=== PATIENT | female | born 1985 | race African-American/Black ===

== ENCOUNTER 2017-02-14 12:52 | Emergency (ER) | payer OTHER ==
[~2017-02-14] VITALS: Ht 167.6 cm; Wt 65.0 kg
[~2017-02-14 12:52] MED LIST: AMOXICILLIN500 MG PO; CIPROFLOXACN500 MG PO; FIORICET PO; LORTAB 1010 MG PO; MACROBID100 MG PO; NORCO1 TA1 PO; OB COMPLET2 PO; ONDANSETRON4 MG PO; PROGESTERONE50 MG/ML IM; TUSSIONEX1 ML PO; ULTRAM50 M1 PO; ZITHROMAX250 MG PO
[2017-02-14] MEDS ORDERED: PRE-NATAL PO (13:37)
[2017-02-14] MEDS ORDERED: AMOXICILLIN500 MG PO ×2 (14:42→16:26)
[2017-02-14 14:45] VITALS: BP 128/65
== END 2017-02-14 14:45 | disposition home or self-care (01) | DRG 781 ==
LOC: ED 12:52
DX: O26.891 Other specified pregnancy related conditions, first trimester (principal); R50.9 Fever, unspecified; J40 Bronchitis, not specified as acute or chronic

== ENCOUNTER 2017-03-06 17:00 | Emergency (ER) | payer OTHER ==
[~2017-03-06] VITALS: Ht 167.6 cm; Wt 57.0 kg
[~2017-03-06 17:00] MED LIST changes: +PRE-NATAL PO
[2017-03-06 17:54] LABS: HEMATOCRIT 26.7 % (37.0-47.0); HEMOGLOBIN 9.7 g/dl (12.0-16.0); IMMATURE GRANULOCYTES 0.5 % (0.0-1.0); MEAN CELL VOLUME 81.4 fL CALC (80.0-100.0); MEAN CORPUSCULAR HGB 29.6 pG CALC (26.0-32.0); MEAN CORPUSCULAR HGB CONC 36.3 g/L CALC (32.0-36.0); NEUT# 5.38 thou/uL (2.00-7.15); RED BLOOD COUNT 3.28 mill/uL (4.20-5.60); RED CELL DISTRI WIDTH 13.5 % (11.5-15.5)
[2017-03-06 18:15] LABS: ALBUMIN 3.7 g/dL (3.2-5.0); ALKALINE PHOSPHATASE 46 u/l (38-126); ANION GAP 14 (6-22 (CALC)); BILIRUBIN, TOTAL 0.3 mg/dL (0.0-1.4); BUN 5 mg/dL (7-17); BUN/CREATININE RATIO 11 (12-20 (CALC)); CALCIUM 8.9 mg/dL (8.4-10.2); CARBON DIOXIDE 20 mmol/l (22-30); CHLORIDE 106 mmol/l (95-108); CREATININE 0.5 mg/dL (0.5-1.0); GFR > 60 ML/MIN (>=60 (CALC)); GFR FOR AFR.AMER. > 60 ML/MIN (>=60 (CALC)); GLUCOSE 85 mg/dL (65-105); POTASSIUM 3.4 mmol/l (3.5-5.1); SGOT/AST 22 u/l (14-36); SGPT/ALT 22 u/l (9-52); SODIUM 137 mmol/l (137-146); TOTAL PROTEIN 6.7 g/dL (6.3-8.2)
[2017-03-06 19:26] VITALS: BP 96/55
[2017-03-06 19:28] LABS: URINE BILIRUBIN - DIPSTICK NEGATIVE (NEGATIVE); URINE BLOOD DIPSTICK NEGATIVE (NEGATIVE); URINE CLARITY CLEAR; URINE COLOR YELLOW; URINE GLUCOSE - DIPSTICK NEGATIVE (NEGATIVE); URINE KETONE TRACE mg/dL (NEGATIVE); URINE LEUK ESTERASE TRACE (NEGATIVE); URINE NITRITE - DIPSTICK NEGATIVE (Negative); URINE PH 7.5 (4.5-8.0); URINE PROTEIN - DIPSTICK NEGATIVE (NEG-TRACE); URINE SPECIFIC GRAVITY 1.015
== END 2017-03-06 19:30 | disposition home or self-care (01) | DRG 914 ==
LOC: ED 17:00
PROVIDERS: Emergency Medicine
DX: S39.81XA Other specified injuries of abdomen, initial encounter (principal); O26.852 Spotting complicating pregnancy, second trimester; Z3A.16 16 weeks gestation of pregnancy; W50.0XXA Accidental hit or strike by another person, initial encounter

== ENCOUNTER 2017-11-13 22:16 | Emergency (ER) | payer OTHER ==
[~2017-11-13] VITALS: Ht 167.6 cm; Wt 59.4 kg
[2017-11-14] MEDS ORDERED: NAPROSYN500 MG PO (00:40)
[2017-11-14 00:43] VITALS: BP 116/76
== END 2017-11-14 01:02 | disposition home or self-care (01) | DRG 552 ==
LOC: ED 22:16
DX: S13.9XXA Sprain of joints and ligaments of unspecified parts of neck, initial encounter (principal); M62.830 Muscle spasm of back; S33.5XXA Sprain of ligaments of lumbar spine, initial encounter; V49.59XA Passenger injured in collision with other motor vehicles in traffic accident, initial encounter; Y92.414 Local residential or business street as the place of occurrence of the external cause

== ENCOUNTER 2018-07-19 19:33 | Emergency (ER) | payer SELFPAY ==
[~2018-07-19] VITALS: Ht 167.6 cm; Wt 55.0 kg
[~2018-07-19 19:33] MED LIST changes: +NAPROSYN500 MG PO
[2018-07-19] MEDS ORDERED: PENICILLN VK500 MG PO (20:33)
[2018-07-19] MEDS ORDERED: IBUPROFEN600 MG PO (20:33)
[2018-07-19 20:42] VITALS: BP 110/66
== END 2018-07-19 20:42 | disposition home or self-care (01) | DRG 159 ==
LOC: ED 19:33
DX: K04.7 Periapical abscess without sinus (principal)

== ENCOUNTER 2018-10-27 15:05 | Emergency (ER) | payer SELFPAY ==
[~2018-10-27] VITALS: Ht 167.6 cm; Wt 61.0 kg
[~2018-10-27 15:05] MED LIST changes: +IBUPROFEN600 MG PO; +PENICILLN VK500 MG PO
[2018-10-27] MEDS ORDERED: TORADOL PO (15:29)
[2018-10-27] MEDS ORDERED: AMOXICILLIN500 MG PO (15:29)
[2018-10-27 15:45] VITALS: BP 121/73
== END 2018-10-27 15:45 | disposition home or self-care (01) | DRG 159 ==
LOC: ED 15:05
DX: K08.89 Other specified disorders of teeth and supporting structures (principal); K02.9 Dental caries, unspecified

== ENCOUNTER 2019-07-28 18:55 | Emergency (ER) | payer SELFPAY ==
[~2019-07-28] VITALS: Ht 167.6 cm; Wt 58.2 kg
[~2019-07-28 18:55] MED LIST changes: +TORADOL PO
[2019-07-28 19:50] LABS: IMMATURE GRANULOCYTES 0.3 % (0.0-5.0); MEAN CELL VOLUME 81.2 fL CALC (80.0-100.0); MEAN CORPUSCULAR HGB 28.3 pG CALC (26.0-32.0); MEAN CORPUSCULAR HGB CONC 34.8 g/L CALC (32.0-36.0); NEUT# 3.74 thou/uL (2.00-7.15); RED BLOOD COUNT 4.42 mill/uL (4.20-5.60); RED CELL DISTRI WIDTH 15.5 % (11.5-15.5)
[2019-07-28 19:51] LABS: HEMATOCRIT 35.9 % (37.0-47.0); HEMOGLOBIN 12.5 g/dl (12.0-16.0)
[2019-07-28 19:51] LABS: URINE BILIRUBIN - DIPSTICK NEGATIVE (NEGATIVE); URINE BLOOD DIPSTICK NEGATIVE (NEGATIVE); URINE COLOR YELLOW; URINE GLUCOSE - DIPSTICK NEGATIVE (NEGATIVE); URINE KETONE NEGATIVE (NEGATIVE); URINE LEUK ESTERASE TRACE (NEGATIVE); URINE NITRITE - DIPSTICK NEGATIVE (Negative); URINE PROTEIN - DIPSTICK NEGATIVE (NEG-TRACE); URINE SPECIFIC GRAVITY <=1.005; URINE UROBILINOGEN - DIPSTICK 0.2 E.U./dL (0.2)
[2019-07-28 20:00] VITALS: BP 130/67
[2019-07-28 20:14] LABS: ANION GAP 16 (6-22 (CALC)); BUN 6 mg/dL (7-17); BUN/CREATININE RATIO 11 (12-20 (CALC)); CARBON DIOXIDE 23 mmol/l (22-30); CHLORIDE 104 mmol/l (95-108); CREATININE 0.5 mg/dL (0.5-1.0); GFR > 60 ML/MIN (>=60 (CALC)); GFR FOR AFR.AMER. > 60 ML/MIN (>=60 (CALC)); POTASSIUM 3.9 mmol/l (3.5-5.1); SGOT/AST 22 u/l (14-36); SODIUM 139 mmol/l (137-146)
[2019-07-28 20:15] LABS: ALKALINE PHOSPHATASE 83 u/l (38-126); BILIRUBIN, TOTAL 0.5 mg/dL (0.0-1.4); TOTAL PROTEIN 8.7 g/dL (6.3-8.2)
[2019-07-28 20:26] LABS: MYOGLOBIN 27 ng/mL (0 - 62)
== END 2019-07-28 22:16 | disposition home or self-care (01) | DRG 313 ==
LOC: ED 18:55
PROVIDERS: Emergency Medicine
DX: R07.89 Other chest pain (principal)

== ENCOUNTER 2019-11-30 06:36 | Emergency (ER) | payer SELFPAY ==
[2019-11-30] MEDS ORDERED: TYLENOL # 31 TAB PO (07:25)
[2019-11-30] MEDS ORDERED: KEFLEX500 MG PO (07:25)
[2019-11-30 07:37] VITALS: BP 111/67
== END 2019-11-30 07:42 | disposition home or self-care (01) | DRG 159 ==
LOC: ED 06:36
DX: K04.7 Periapical abscess without sinus (principal)

== ENCOUNTER 2020-01-22 | Emergency (ER) | payer OTHER ==
[~2020-01-22] MED LIST changes: +KEFLEX500 MG PO; +TYLENOL # 31 TAB PO
[2020-01-22 17:29] LABS: IMMATURE GRANULOCYTES 0.5 % (0.0-5.0); MEAN CELL VOLUME 79.9 fL CALC (80.0-100.0); MEAN CORPUSCULAR HGB 29.4 pG CALC (26.0-32.0); MEAN CORPUSCULAR HGB CONC 36.7 g/dL CAL (32.0-36.0); NEUT# 5.65 thou/uL (2.00-7.15); RED BLOOD COUNT 3.54 mill/uL (4.20-5.60); RED CELL DISTRI WIDTH 13.9 % (11.5-15.5)
[2020-01-22 17:34] LABS: URINE BILIRUBIN - DIPSTICK NEGATIVE (NEGATIVE); URINE BLOOD DIPSTICK NEGATIVE (NEGATIVE); URINE CLARITY CLEAR; URINE COLOR YELLOW; URINE GLUCOSE - DIPSTICK NEGATIVE (NEGATIVE); URINE KETONE NEGATIVE (NEGATIVE); URINE LEUK ESTERASE NEGATIVE (Negative); URINE NITRITE - DIPSTICK NEGATIVE (Negative); URINE PROTEIN - DIPSTICK NEGATIVE (NEG-TRACE); URINE UROBILINOGEN - DIPSTICK 0.2 E.U./dL (0.2)
[2020-01-22 17:34] LABS: HEMATOCRIT 28.3 % (37.0-47.0); HEMOGLOBIN 10.4 g/dl (12.0-16.0)
[2020-01-22 17:36] LABS: BARBITURATES NEGATIVE (NEGATIVE); COCAINE NEGATIVE (NEGATIVE); METHADONE NEGATIVE (NEGATIVE); OXCYCODONE NEGATIVE (NEGATIVE); TETRAHYDROCANNABIONOL NEGATIVE (NEGATIVE); TRICYLIC ANTIDEPRESSANTS NEGATIVE (NEGATIVE)
[2020-01-22 17:37] LABS: ALKALINE PHOSPHATASE 57 u/l (38-126); ANION GAP 9 (6-22 (CALC)); BILIRUBIN, TOTAL 0.3 mg/dL (0.0-1.4); BUN 3 mg/dL (7-17); BUN/CREATININE RATIO 8 (12-20 (CALC)); CARBON DIOXIDE 22 mmol/l (22-30); CHLORIDE 105 mmol/l (95-108); CREATININE 0.4 mg/dL (0.5-1.0); ETHYL ALCOHOL 0 mg/dl (0-30); GFR > 60 ML/MIN (>=60 (CALC)); GFR FOR AFR.AMER. > 60 ML/MIN (>=60 (CALC)); POTASSIUM 3.7 mmol/l (3.5-5.1); SGOT/AST 14 u/l (14-36); SODIUM 133 mmol/l (137-146)
[2020-01-22 17:43] LABS: ACT PARTIAL THROMBO TIME 32.1 SECONDS (20.0-32.5); PROTHROMBIN TIME 10.6 SECONDS (9.0-12.5)
[2020-01-22 17:44] LABS: ALBUMIN 3.5 g/dL (3.2-5.0); TOTAL PROTEIN 6.5 g/dL (6.3-8.2)
== END 2020-01-22 19:36 | disposition home or self-care (01) | DRG 833 ==
PROVIDERS: Emergency Medicine
DX: O9A.211 Injury, poisoning and certain other consequences of external causes complicating pregnancy, first trimester (principal); S30.1XXA Contusion of abdominal wall, initial encounter; Z3A.01 Less than 8 weeks gestation of pregnancy; V49.40XA Driver injured in collision with unspecified motor vehicles in traffic accident, initial encounter

== ENCOUNTER 2022-06-15 02:34 | Emergency (ER) | payer OTHER ==
[~2022-06-15] VITALS: Ht 167.6 cm; Wt 62.0 kg
[2022-06-15] MEDS ORDERED: AMOXICILLIN500 MG PO (04:30)
[2022-06-15 05:22] VITALS: BP 105/77
== END 2022-06-15 05:22 | disposition home or self-care (01) ==
LOC: ED 02:34
DX: J02.9 Acute pharyngitis, unspecified (principal); Z20.822 Contact with and (suspected) exposure to COVID-19